=== PATIENT | male | born 1980 | race African-American/Black ===

== ENCOUNTER 2017-01-22 04:06 | Emergency (ER) | payer SELFPAY ==
[2017-01-22 05:39] VITALS: BP 150/92
[2017-01-22] MEDS ORDERED: PENICILLIN V POTASSIUM 250 MG TABLET PO ONE (05:57)
[2017-01-22] MEDS ORDERED: IBUPROFEN 400 MG TABLET PO ONE (05:58)
--- NOTE | 2017-01-22 05:58 | ERNOTE ---
ENT HPI Date of Service: 01/22/17 Time Seen by Provider: 01/22/17 05:48 Source: patient Exam Limitations: no limitations - Immun/Allergies/Home Medications Immunizations: IMMUNIZATION HX Immunizations Up to Date No History of Influenza Vaccine No Hx Pneumococcal Vaccination No Allergies/Adverse Reactions: Allergies Allergy/AdvReac Type Severity Reaction Status Date / Time No Known Allergies Allergy Unverified 10/14/16 14:57 Home Medications: HOME MEDICATIONS Ibuprofen 800 mg PO TID PRN #15 tablet 01/22/17 [Last Taken Unknown] Penicillin V Potassium [Pen-Vee K 250 MG/5 ML Suspension] 250 mg PO QID #40 btl 01/22/17 [Last Taken Unknown] - History of Present Illness Narrative: toothache for a long time. He is here for left sided tooth ache, it is broken and rotten down to gum line. Pt has not seeked dental care for this issue Review of Systems - Review of Systems Constitutional: Present: no symptoms reported EYE: Present: no symptoms reported ENT: Present: See HPI Respiratory: Present: no symptoms reported Cardiology: Present: no symptoms reported Gastrointestinal/Abdominal: Present: no symptoms reported Genitourinary: Present: no symptoms reported Musculoskeletal: Present: no symptoms reported Skin: Present: no symptoms reported - Patient's Past Medical History Patient History - Medical: Other Patient History - Cardiac/Respiratory: No pertinent hx Patient History - Cancer: No Hx of Cancer - Social History Living Situations: home Psych History: No pertinent hx Smoking Status: Current every day smoker Alcohol Use: heavy Drug Use: none - Immunizations Immunizations Up to Date: No Hx Pneumococcal Vaccination: No History of Influenza Vaccine: No Physical Exam - Physical Exam General Appearance: Present: wd/wn, alert, no apparent distress - pt was sleeping in the waiting room. Ears, Nose, Throat: Present: normal pharynx, other - pt does have fracture and errosion and decay of tooth number 19, down to the gingival margin and lower. there is swelling of the gingiva in that region Respiratory: Present: no respiratory distress, normal breath sounds, no accessory muscle use, chest nontender, lungs clear Cardiovascular/Chest: Present: regular rate, rhythm, no murmur, normal peripheral pulses Gastrointestinal/Abdominal: Present: normal bowel sounds, nontender, nondistended, soft, no organomegaly Back Exam: Present: normal inspection Extremity Exam: Present: normal inspection Neurological Exam: Present: alert, oriented, normal mood/affect, no motor/ sensory deficits Skin Exam: Present: normal color, warm/dry ED Progress - Vital Signs Patient's Vital Signs:: I have reviewed the patient's vital signs. Vital Signs: Vital Signs 01/22/17 05:35 Temperature 36.8 C Pulse Rate 81 Respiratory 18 Rate Blood Pressure 150/92 O2 Sat by Pulse 95 Oximetry - Progress/Reassessment Chief Complaint: Dental Problem Departure Clinical Impression: Tooth ache - Departure Disposition: Home self-care Condition: Good Instructions: Dental Dry Socket, [id number] Prescriptions: Ibuprofen 800 mg PO TID PRN #15 tablet PRN Reason: Pain Penicillin V Potassium [Pen-Vee K 250 MG/5 ML Suspension] 250 mg PO QID #40 btl
[2017-01-22] MEDS ORDERED: IBUPROFEN 400 MG TABLET ONE (06:02)
[2017-01-22] MEDS ORDERED: PENICILLIN V POTASSIUM 250 MG TABLET ONE (06:02)
== END 2017-01-22 06:10 | disposition home or self-care (01) ==
LOC: ER 04:06
DX: K08.89 Other specified disorders of teeth and supporting structures (principal); F17.210 Nicotine dependence, cigarettes, uncomplicated